=== PATIENT | male | born 1980 | race Caucasian/White ===

== ENCOUNTER 2018-02-07 14:52 | Emergency (ER) | payer MEDICARE, SELFPAY ==
[2018-02-07 14:52] VITALS: BP 161/105; PULSE 89; RESP 16; TEMP 37.4; O2SAT 97; BMI 41.0
[2018-02-07] MEDS: HYDROcodone Bitartrate/Apap 5/325 Tablet PO (14:59)
--- NOTE | 2018-02-07 15:00 | RAD_ITS ---
STUDY: X-RAY - LEFT ANKLE REASON FOR EXAM: Male, 37 years old. Pain following injury. TECHNIQUE: 3 view(s) of the ankle. COMPARISON: None. FINDINGS: Normal visualized distal tibia and fibula. Normal medial and lateral malleoli. Normal tibiotalar articulation and ankle mortise. Plantar spur. The visualized subtalar, talonavicular, calcaneocuboid and tarsal articulations are normal. Soft tissue swelling. RAD/Ankle min 3 Views IMPRESSION: Soft tissue swelling. No fracture is seen. Electronically Signed: Harrison Richard MD at 15:24 EDT Tel [phone], Service support ,
--- NOTE | 2018-02-07 15:07 | ED.DCSUM_ITS ---
- ER Visit Summary Date of Service: 02/07/18 Chief Complaint: Left ankle injury History of Present Illness: The patient is a 37 M who presents to the emergency department with left ankle injury. Patient states 3 days ago, he was walking. He twisted his foot. He states he had some swelling, but it got more painful over the past 24-48 hours. He said some difficult time bearing weight. He has taken ibuprofen with little improvement. He denies any other injury. The patient is otherwise healthy. He denies any history of prior ankle injury or fracture. Physical Examination: Exam is relatively unremarkable. Patient has tenderness to palpation over the left medial malleolus. There is 2+ pulses. Higginbotham testing is negative. No pain at the proximal fibula. No pain at the head of the fifth metatarsal. Skin is intact. Test Results: [] Emergency Department Course and Treatment: The patient underwent plain films of the ankle. There was no evidence of acute fracture. I do feel that his symptoms are likely secondary to ligamentous sprain. He is placed in an Aircast , given crutches, anti-inflammatories, 2 days of analgesics. He will be discharged home, follow-up with primary care for reevaluation. underwent plain films of the ankle. Treatment Plan: [] Disposition: Discharge Impression: Left ankle sprain This note was generated with [employer] dictation software. It may contain incorrect words, spelling, and punctuation that were not noted in review of the chart prior to signing ED Disposition - Plan for ED Patient: Chief Complaint: Lower Extremity Injury Instructions: ED Sprain Ankle W X Ray Prescriptions: Hydrocodone Bitart/Apap 5-325 [[place] 5MG-325MG] 1 tab PO Q4H PRN PRN 2 Days #5 tab PRN Reason: Pain Naproxen [Naprosyn] 500 mg PO BID PRN #20 tab Referrals: Gabino Boggs DO [Primary Care Provider] -
[2018-02-07 15:47] VITALS: BP 157/11; PULSE 84; RESP 16; O2SAT 94
== END 2018-02-07 15:50 | disposition home or self-care (01) ==
LOC: ED 15:07
PROVIDERS: Emergency Provider Emergency Medicine; Family Provider Student in an Organized Health Care Education/Training Program; PCP Student in an Organized Health Care Education/Training Program
DX: S93.402A Sprain of unspecified ligament of left ankle, initial encounter (principal); X50.1XXA Overexertion from prolonged static or awkward postures, initial encounter; Y93.01 Activity, walking, marching and hiking; Z87.891 Personal history of nicotine dependence
CPT/HCPCS: 73610; 99285

== ENCOUNTER 2018-11-21 22:32 | Emergency (ER) | payer MEDICARE, SELFPAY ==
[2018-11-21 22:33] VITALS: BP 166/117; PULSE 91; RESP 16; TEMP 37.1; O2SAT 95; BMI 42.5
--- NOTE | 2018-11-21 22:42 | RAD_ITS ---
STUDY: X-RAY - RIGHT WRIST REASON FOR EXAM: Male, 38 years old. Swelling TECHNIQUE: 3 view(s) of the wrist were obtained. COMPARISON: None. FINDINGS: Normal visualized distal radius and ulna. Normal radiocarpal articulation. Normal distal radioulnar articulation. Normal carpal bones. Normal carpal articulations. Normal carpometacarpal articulation of the thumb. Normal second through fifth carpometacarpal articulations. Normal visualized metacarpal bones. Soft tissue swelling. RAD/Wrist min 3 Views IMPRESSION: No acute bony injury of the wrist. Electronically Signed: Spencer Evans DO at 23:21 EST Tel [phone], Service support ,
--- NOTE | 2018-11-21 22:47 | ED.RN ---
PT HAS MEDICATIONS AT HOME FRO DEPRESSION, HTN AND THROID BUT FORGETS TO TAKE THEM.
--- NOTE | 2018-11-21 23:27 | ED.VISSUMM ---
- ER Visit Summary Date of Service: 11/21/18 Chief Complaint: Right wrist pain History of Present Illness: The patient is a 38 M [id number] presenting with right wrist pain. He was helping his brother a few days ago and a ladder fell and struck his right wrist. No other injuries. Pain is worse with palpation. It is better with a Velcro wrist splint that he purchased. Paresthesias. No hand pain or forearm pain. Physical Examination: No tenderness on palpation of the distal radius on the right. Skin intact. No ecchymosis. Normal distal neurovascular examination. No hand tenderness or proximal forearm tenderness. Test Results: Right wrist x-ray negative for acute process Emergency Department Course and Treatment: Right wrist x-ray was negative. He will use ice, anti-inflammatories, and follow-up if not improving. Treatment Plan: Follow-up as outpatient Disposition: Home stable Impression: Initial encounter acute right wrist contusion This note was generated with [employer] dictation software. It may contain incorrect words, spelling, and punctuation that were not noted in review of the chart prior to signing ED Disposition - Plan for ED Patient: Instructions: ED Sprain Wrist Prescriptions: Naproxen [Naprosyn] 500 mg PO BID PRN #20 tablet Referrals: Kevin Arevalo DO [STAFF PHYSICIAN] -
[2018-11-21 23:55] VITALS: BP 150/100; PULSE 92; RESP 16; O2SAT 95
== END 2018-11-21 23:55 | disposition home or self-care (01) ==
LOC: ED 23:25
PROVIDERS: Emergency Provider Emergency Medicine; Family Provider Student in an Organized Health Care Education/Training Program; PCP Student in an Organized Health Care Education/Training Program
DX: S60.211A Contusion of right wrist, initial encounter (principal); W20.8XXA Other cause of strike by thrown, projected or falling object, initial encounter; Y93.89 Activity, other specified; Y92.9 Unspecified place or not applicable; Z72.0 Tobacco use
CPT/HCPCS: 73110; 99282

== ENCOUNTER → 2021-06-24 20:00 | Outpatient (CLI) | payer MEDICARE, MEDICAID, SELFPAY | PROVIDERS: PCP Student in an Organized Health Care Education/Training Program; Visit Provider Nurse Practitioner Family | DX: G47.33 Obstructive sleep apnea (adult) (pediatric) (principal); E66.01 Morbid (severe) obesity due to excess calories; R06.83 Snoring | CPT/HCPCS: 95810 ==

== ENCOUNTER 2021-08-08 14:32 | Emergency (ER) | payer MEDICARE, MEDICAID, SELFPAY ==
[2021-08-08 14:33] VITALS: BP 178/122; PULSE 89; RESP 18; TEMP 36.4; O2SAT 98; BMI 46.8
[2021-08-08 15:34] LABS: Absolute Lymphocyte Count 0.97 X10^3/uL (0.83-4.51); Absolute Neutrophil Count 10.6 X10^3/uL (2.0-7.7); Basophil# 0.05 X10^3/uL; Basophil% 0.4 % (0-1); Eosinophil# 0.01 X10^3/uL; Eosinophils% 0.1 % (0-5); Hematocrit 43.5 % (40-54); Hemoglobin 14.8 g/dL (13.0-16.5); Lymphocyte # 0.97 X10^3/ul (0.83-4.51); Mean Corpuscular Hgb 30.7 pg (27.0-32.0); Mean Corpuscular Volume 90.2 fL (80-94); Mean Platelet Vol. 9.8 fl (6.2-12.0); Monocyte# 0.32 X10^3/uL; Monocyte% 2.7 % (0-10); NRBC Flagged by Analyzer 0 % (0-5); Neutrophil # 10.61 X10^3/uL (2.7-7.7); Neutrophil % 88.1 % (47-70); Platelet Count 337 K/mm3 (150-450); RBC Distribution Width CV 13.3 % (11.6-14.6); RBC Distribution Width SD 44.3 fl (35.1-43.9); Red Blood Count 4.82 M/mm3 (4.6-6.2); White Blood Count 12.1 K/mm3 (4.4-11.0)
--- NOTE | 2021-08-08 15:39 | CT_ITS ---
STUDY: CT ABDOMEN AND PELVIS WITHOUT CONTRAST REASON FOR EXAM: Male, 41 years old. Flank pain. Question kidney stone. RADIATION DOSAGE (If Supplied By Facility): CTDIvol = ( 30.15 ) mGy, DLP = ( 1626.88 ) mGycm TECHNIQUE: Transaxial images were obtained from the dome of the diaphragm to the symphysis pubis without oral contrast, and without intravenous contrast. Sagittal and coronal images were reconstructed. Individualized dose optimization techniques were used for this CT. COMPARISON: None. FINDINGS: The visualized lung bases are unremarkable. The visualized portions of the heart are within normal limits. Diffuse fatty infiltration liver without focal mass. There are surgical clips in the gallbladder fossa consistent with a prior cholecystectomy. Normal spleen. Normal pancreas. Normal bilateral adrenal glands. Right kidney is of normal size and cortical thickness. Residual 1 to 2 mm calcification in the mid to lower pole calyx. There is minimal stranding in the renal hilar region. There is mild hydronephrosis and ureteral dilatation to just above the UVJ where there is a 4 mm calculus (image 159, series 2). There is a 1 mm calcification in the upper pole of the left kidney. There is no hydronephrosis or mass. Normal left ureter. Normal visualized stomach. Normal small intestine. Normal colon. The appendix is visualized and appears normal. Normal abdominal aorta. Normal inferior vena cava. Normal retroperitoneum. Normal urinary bladder. Normal prostate. No pelvic lymphadenopathy. No free air or free fluid is seen within the peritoneal cavity. Small umbilical hernia of omental fat. The abdominal wall is otherwise unremarkable. Flattening of the lumbar lordosis with diffuse degenerative changes. Sclerotic changes at the L2-3 disc level with mild erosive changes thought to be degenerative. If there is concern for discitis or osteomyelitis, MRI could be performed. CT/Abdomen/Pelvis without Cont IMPRESSION: 1. Distal right ureteral calculus with mild obstructive uropathy. 2. Nonobstructing bilateral renal calculi. 3. Fatty infiltration of the liver. 4. Degenerative changes of the lumbar spine. Electronically Signed: Kush Abreu DO at 16:26 EST Tel [phone], Service support ,
--- NOTE | 2021-08-08 15:40 | EDS_ITS ---
HPI HPI - GI History of Present Illness Chief Complaint: Abd Pain Detail of Chief Complaint: Right flank pain and vomiting Informant: patient Abdominal Pain/Flank Pain Current Severity: Mild Maximum Severity: Severe Nausea/Vomiting/Emesis GI Symptom: Positive for Nausea and Vomiting Narrative Narrative: Patient presents to the emergency department with abdominal pain/flank pain that started about 7:30 AM. Patient states that it came on rather suddenly and felt like he needed to have a bowel movement but could not. Patient then started to vomit. Patient states he is never had discomfort like this before. Patient is not sure if this is related to some chicken that he had eaten the night before. Patient denies any diarrhea. He denies urinary symptoms other than he just started having some hematuria. He has no history of kidney stones. He denies dysuria, urgency, or frequency. Currently states his pain is improved but still has a little bit of nausea. He does not want anything for pain at this time. Patient does have history of obstructive sleep apnea as well as hypertension. Patient's had prior cholecystectomy. [facility] Medical History (Updated 08/08/21 @ 16:[address] Riddhi Silva, ) GERD (gastroesophageal reflux disease) Hyperlipidemia Hypertension Hypothyroidism Sleep apnea Home Medications citalopram 10 mg PO DAILY 08/08/21 [History Last Taken Unknown] hydrocodone-acetaminophen 1 tab PO Q4H PRN PRN 2 Days #10 tablet 08/08/21 [Rx Last Taken Unknown] levothyroxine 150 mcg PO DAILY 08/08/21 [History Last Taken Unknown] lisinopril-hydrochlorothiazide 1 tab PO DAILY 08/08/21 [History Last Taken Unknown] omeprazole 20 mg PO DAILY 08/08/21 [History Last Taken Unknown] ondansetron 4 mg PO Q8H PRN PRN #10 tab 08/08/21 [Rx Last Taken Unknown] pravastatin 40 mg PO DAILY 08/08/21 [History Last Taken Unknown] sulfamethoxazole-trimethoprim 1 tab PO BID #6 tablet 08/08/21 [Rx Last Taken Unknown] Allergy/AdvReac Type Severity Reaction Status Date / Time divalproex sodium Allergy Other Verified 08/08/21 14:35 [From Depakote] Surgical History (Updated 08/08/21 @ 15:28 by Jacqueline Hogue) History of cholecystectomy Social History Smoking Status: Current every day smoker tobacco type: cigarettes ROS ROS ED Constitutional Constitutional ED: Reports systems reviewed and no addt'l complaints, except as documented; Denies body ache(s), change in weight or chills Eyes Eyes: Denies acute decrease in peripheral vision, change in vision, double vision or loss of vision ENT ENT ED: Reports none; Denies ear pain, lip swelling, loss taste/smell, neck pain, otalgia or sore throat Cardiovascular Cardiovascular: Reports none; Denies abdominal pain, chest pain with activity, leg edema, lightheadedness, palpitations, rapid heart rate or syncope Respiratory/Chest Respiratory/Chest: Reports none; Denies change in mental status, dry cough, dyspnea, hemoptysis, shortness of breath at rest or shortness of breath with exertion Gastrointestinal Gastrointestinal: Reports none, abdominal pain, nausea and vomiting; Denies change in stool character, diarrhea, hematemesis, hematochezia, melena or rectal bleeding Genitourinary Genitourinary ED: Reports none and hematuria; Denies abdominal discomfort, anuria, dysuria, genital pain or polyuria Musculoskeletal Musculoskeletal: Reports none; Denies arthralgias, back pain, difficulty walking, extremity pain, muscle weakness or myalgias Integumentary Reports none; Denies abscess or rash Neurologic Neurologic: Reports none; Denies abnormal gait, confusion, focal weakness, frequent falls, headache(s), loss of vision, numbness, paresthesias, radicular pain, vertigo or weakness Psychiatric Psychiatric: Reports systems reviewed and no addt'l complaints, except as documented and none; Denies behavioral changes, confusion, difficulty concentrating, hallucinations, suicidal ideation, tactile hallucinations or visual hallucinations Endocrine Endocrinology: Denies none, cold intolerance, excessive sweating, fatigue or heat intolerance Hematologic/Lymphatic Hematologic/Lymphatic: Reports none; Denies anemia, easy bleeding or easy bruising Allergic/Immunologic Allergic/Immunologic ED: Denies as per HPI, none, lip swelling, mouth swelling, throat swelling, tongue swelling or hives EXAM Physical Exam Const Vital Signs: 08/08/21 14:33 Temperature 97.6 F L Temperature Source Temporal Pulse Rate 89 Respiratory Rate 18 Blood Pressure 178/122 H Blood Pressure Mean 140 Pulse Ox 98 Oxygen Delivery Method Room Air Positive well nourished and well developed General Appearance ED: well developed and NAD HEENT Reports TM's clear and moist mucous membranes normocephalic and atraumatic; Negative for trauma or tenderness Tympanic Membrane ED: Yes TM's clear Eyes PERRL and EOMs intact bilaterally General Eye ED: Negative for pale conjunctiva or scleral icterus Neck no lymphadenopathy, supple and no JVD General: Negative for tenderness Chest Wall inspection of chest normal and palpation of chest normal Chest: Negative for tenderness Resp normal respiratory effort and clear to auscultation bilaterally Effort and Inspection: Negative for respiratory distress or pain with movement Auscultation: Negative for rhonchi, wheezes or diminished lung sounds Cardio regular rate, regular rhythm, S1 normal heart sound, S2 normal heart sound and no murmurs Peripheral Pulses: pulses 2+ throughout GI normal to inspection, nondistended, normoactive bowel sounds, soft to palpation, non-tender, non-distended and no masses Back/Spine no thoracic nor lumbar tenderness Back/Spine Narrative: Patient has some mild CVA tenderness on the right. General Back: CVA tenderness Extremity normal to inspection General Extremety ED: Negative for edema General Extremity: Negative for edema Neuro oriented x3, CN's II-XII intact bilaterally, no sensory deficits noted and gait normal Sensorium / Orientation: awake, alert, oriented to person, oriented to place and oriented to time Motor Exam: strength 5/5 throughout and strength abnormal Psych mental status grossly normal Skin no rashes or lesions noted and no wounds MDM MDM MDM Narrative Medical decision making narrative: IV line established on arrival. Patient was given Zofran for nausea. He was not having much pain and did not want thing for pain. Patient work-up consistent with a kidney stone at the right UVJ measuring 4 mm. Patient did have a slightly elevated white count which may be reactive but did have some WBCs in his urine as well. Patient will be started on Bactrim and given a prescription for [place] as well as Zofran. Patient advised to follow-up with urology within next 3 to 5 days. Patient advised to return if worsening pain, fever, vomiting, or condition should worsen anyway. Lab Data Attestation: I reviewed the patient's lab results. Labs: Laboratory Results - last 24 hr 08/08/21 08/08/21 08/08/21 15:25 15:25 15:40 WBC 12.1 H RBC 4.82 Hgb 14.8 Hct 43.5 MCV 90.2 MCH 30.7 MCHC 34.0 RDW Std Deviation 44.3 H RDW Coeff of Liliana 13.3 Plt Count 337 MPV 9.8 Immature Gran % (Auto) 0.700 Neut % (Auto) 88.1 H Lymph % (Auto) 8.0 L [place] % (Auto) 2.7 Eos % (Auto) 0.1 Baso % (Auto) 0.4 Absolute Neuts (auto) 10.6 H Absolute Lymphs (auto) 0.97 Nucleated RBC % 0 Sodium 139 Potassium 4.1 Chloride 106 Carbon Dioxide 28.0 Anion Gap 5 BUN 25 H Creatinine 1.56 H Estim Creat Clear Calc 60.29 Est GFR (MDRD) Af Amer 63 Est GFR (MDRD) Non-Af 52 L BUN/Creatinine Ratio 16.0 Glucose 120 H Calcium 10.0 Urine Color Brown Urine Clarity Cloudy Urine pH 5.0 Ur Specific Emmet 1.025 Urine Protein 100 H Urine Glucose (UA) Normal Urine Ketones 50 H Urine Occult Blood 250 H Urine Nitrite Negative Urine Bilirubin 1 H Urine Urobilinogen 1 H Ur Leukocyte Esterase 25 H Urine RBC > 100 SEEN Urine WBC 10-25 SEEN Ur Squamous Epith Cells 0 SEEN Urine Bacteria 0 SEEN Urine Mucus 0 SEEN Radiography Diagnostic Testing: Clinical Impression(s) from Imaging Studies Abdomen/Pelvis CT 08/08/21 15:39 IMPRESSION: 1. Distal right ureteral calculus with mild obstructive uropathy. 2. Nonobstructing bilateral renal calculi. 3. Fatty infiltration of the liver. 4. Degenerative changes of the lumbar spine. Electronically Signed: Kush Abreu DO at 16:26 EST Tel [phone], Service support , Discharge Plan Triage Chief Complaint: Abd Pain Other Complaint: Nausea/Vomiting ED Provider: Riddhi Silva Dx/Rx/DC Orders Clinical Impression: Urolithiasis Instructions: ED Kidney Stone w/ Colic Prescriptions: New hydrocodone-acetaminophen [hydrocodone-acetaminophen] 1 TABLET tablet 1 tab PO Q4H PRN PRN (Reason: Pain) 2 Days Qty: 10 RF: 0 sulfamethoxazole-trimethoprim [sulfamethoxazole-trimethoprim] 1 TABLET tablet 1 tab PO BID Qty: 6 RF: 0 ondansetron [ondansetron] 4 MG tablet 4 mg PO Q8H PRN PRN (Reason: Nausea) Qty: 10 RF: 0 No Action lisinopril-hydrochlorothiazide 20-12.5 mg tablet 1 tab PO DAILY RF: 0 pravastatin 40 mg tablet 40 mg PO DAILY RF: 0 citalopram 10 mg tablet 10 mg PO DAILY RF: 0 levothyroxine 150 mcg tablet 150 mcg PO DAILY RF: 0 omeprazole 20 mg capsule,delayed release(DR/EC) 20 mg PO DAILY RF: 0 Primary Care Provider: Gabino Boggs Referrals: Gabino Boggs DO [Primary Care Provider] - Trung Velez MD [STAFF PHYSICIAN] - 3-5 Days Disposition Disposition: Home, Self Care
[2021-08-08 15:43] LABS: Bacteria 0 SEEN /hpf (None Seen); Mucous, Urine 0 SEEN /hpf (<or=2+); Squamous Epithelial Cells - UA 0 SEEN /hpf (0-5)
[2021-08-08 15:46] LABS: Color, Urine Brown (Yellow); Glucose, Dipstick Normal (Normal); Ketone-Dipstick 50 mg/dl (Negative); Leukocyte Esterase-Dipstick 25 /ul (Negative); Nitrite-Dipstick Negative (Negative); Occult Blood-Urine 250 /ul (Negative); Protein-Dipstick 100 mg/dl (Negative); Specific Gravity, Urine 1.025 (1.002-1.030); Urine Clarity Cloudy (Clear); Urine Urobilinogen 1 mg/dl (Normal)
[2021-08-08] MEDS: Ondansetron 4 MG/2 ML Vial IV (15:46)
[2021-08-08] MEDS: 0.9% Normal Saline 1,000 ML 125 ML IV (15:46)
[2021-08-08 15:47] LABS: Anion Gap 5 (5-15); BUN 25 mg/dL (7-18); Chloride 106 mmol/L (98-107); Creatinine, Serum 1.56 mg/dL (0.70-1.30); EST Glomerular Filtration Rate 52 mL/min (>60); Est Glom Filt Rate - Afr Amer 63 mL/min (>60); Estimated Creatinine Clearance 60.29 ml/min; Glucose 120 mg/dL (74-106); Potassium 4.1 mmol/L (3.5-5.1); Sodium Level 139 mmol/L (136-145)
[2021-08-08 15:48] LABS: Urine Bilirubin Dipstick 1 mg/dL (Negative)
[2021-08-08 16:04] LABS: Red Blood Cells-Urine > 100 SEEN /hpf (0-5)
[2021-08-08 16:05] LABS: White Blood Cells 10-25 SEEN /hpf (0-5)
[2021-08-08 16:57] VITALS: PULSE 84; RESP 17; O2SAT 98
== END 2021-08-08 16:59 | disposition home or self-care (01) ==
PROVIDERS: Emergency Provider Emergency Medicine; PCP Student in an Organized Health Care Education/Training Program
DX: N20.9 Urinary calculus, unspecified (principal); G47.33 Obstructive sleep apnea (adult) (pediatric); F17.210 Nicotine dependence, cigarettes, uncomplicated; E03.9 Hypothyroidism, unspecified; E78.5 Hyperlipidemia, unspecified; I10 Essential (primary) hypertension; K21.9 Gastro-esophageal reflux disease without esophagitis; Z79.899 Other long term (current) drug therapy
CPT/HCPCS: 74176; 80048; 81001; 85025; 96374; 99283; J7030; A4216; J2405

== ENCOUNTER → 2021-08-11 21:56 | Outpatient (CLI) | payer MEDICARE, MEDICAID, SELFPAY | PROVIDERS: PCP Student in an Organized Health Care Education/Training Program; Referring Provider Nurse Practitioner Family; Visit Provider Nurse Practitioner Family | DX: G47.33 Obstructive sleep apnea (adult) (pediatric) (principal) | CPT/HCPCS: 95811 ==

== ENCOUNTER → 2021-09-09 09:00 | Outpatient (CLI) | payer MEDICARE, MEDICAID, SELFPAY | PROVIDERS: PCP Student in an Organized Health Care Education/Training Program; Visit Provider Nurse Practitioner Family | DX: Z46.89 Encounter for fitting and adjustment of other specified devices (principal) ==